=== PATIENT | female | born 1935 | race Caucasian/White ===

== ENCOUNTER 2024-09-09 15:29 | Emergency (ER) | payer MEDICARE, MEDICAID ==
[~2024-09-09] VITALS: Ht 172.7 cm; Wt 71.1 kg
[~2024-09-09 15:29] MED LIST: CARV-50 PO; HYDR-3965 PO; LEVO88TA2 PO; LORA0.5T PO; OMEP20CA4 PO; PAT0.1OS LEFTEYE; VALS1TAB7 PO
--- NOTE | 2024-09-09 15:48 | ELECTROCARDIOGRAPH REPORT ---
[facility] Test Date: 2024-09-09 Test Time: 15:46:03 Pat Name: KATIE GLORIA Department: [facility] Patient ID: [facility]-[id number] Room: Gender: F Allergy Specialist: : [id number] Requested By: WILLIE KINNEY Order Number: [id number] Reading MD: Dr. Alexi Schneider Measurements Intervals [place] Rate: 67 P: 13 MT: 131 QRS: -25 QRSD: 105 T: 51 QT: 431 QTc: 455 Interpretive Statements Sinus rhythm Probable left atrial enlargement Left ventricular hypertrophy Electronically Signed On 09-11-2024 19:15:[address] Alexi Schneider Please click the below link to view image of tracing.
[2024-09-09] MEDS: hydrALAZINE 20mg/ml inj. IV ONE (16:38)
--- NOTE | 2024-09-09 17:07 | RADIOLOGY REPORT ---
CHEST RADIOGRAPH Indication: CP Technique: Single frontal view of the chest was obtained Comparison: None FINDINGS: Lines and Tubes: None Lungs: Right basilar Convex superior opacity with small superior margins which may be from eventratio n of the hemidiaphragm. Surgical clips are noted overlying the right lung base. Subtle interstitial o pacities of the right mid and lower lung zone. Pleura: No effusion. No pneumothorax. Cardiomediastinal contours: Mild cardiomegaly with mild atherosclerotic calcification uncoiling of th e aorta. Retrocardiac double density which may represent hernia with aneurysm not excluded. Bones: No acute osseous abnormality. Additional surgical clips are noted over the right axilla. IMPRESSION: Subtle interstitial opacities of the right mid and lower lung zone which may represent atelectasis/ p neumonia. Retrocardiac double density which may represent small to moderate size hiatal hernia. Aortic aneurys m can not be excluded. No prior Imaging for comparison. CT is recommended for further evaluation.
[2024-09-09 17:11] LABS: MEAN PLATELET VOLUME 7.2 FL (7.4-10.4); RED CELL DISTRIBUTION WIDTH 13.4 % (11.5-14.5)
[2024-09-09 17:30] LABS: LEUKOCYTE ESTERASE ,URINE MODERATE (Neg); NITRITES, URINE NEGATIVE (Neg); OCCULT BLOOD,URINE SMALL (Neg)
[2024-09-09 17:32] LABS: UA COLLECTION TYPE CLN CATCH MIDSTREAM
[2024-09-09 17:33] LABS: CREATININE 0.96 MG/DL (0.40-0.90); PRO BRAIN NATRIURETIC PEPTIDE 8341 PG/ML (0-450); TOTAL CARBON DIOXIDE 30.4 MMOL/L (24-32); eCRCL 42 ML/MIN; eGFR 55 ML/MIN
[2024-09-09 17:36] LABS: SQUAMOUS EPITHELIAL CELL,UR FEW /LPF (FEW)
--- NOTE | 2024-09-09 17:58 | Physician Documentation ---
History of Present Illness ~ Chief Complaint: Hypertension Stated Complaint: HYPERTENSION Time Seen by MD: 16:07 Primary Medical Doctor: Miguelina Mode of Arrival: Wheelchair HPI 89-year-old female presents to the ED via her primary care physician for an elevated blood pressure over 200 systolic. The patient states she has has no medical complaints including chest pain shortness of breath headaches changes in vision or any altered cognitive status. States she does not have any medical complaints at all. Denies any urinary frequency Day of Onset: Sep 09, 2024 Medication Reconciliation Allergies: Coded Allergies: Penicillins (Verified Allergy, Unknown, 09/09/24) Sulfa (Sulfonamide Antibiotics) (Verified Allergy, Unknown, 09/09/24) naproxen (Verified Allergy, Unknown, 09/09/24) Scheduled Carvedilol* (Coreg*), 1 TABLET PO QAM, (Reported) Carvedilol* (Coreg*), 2 TABLET PO QPM, (Reported) Ciprofloxacin HCl (Ciprofloxacin HCl), 1 TAB PO Q12H Levothyroxine Sodium (Synthroid), 1 TABLET PO DAILY, (Reported) Lorazepam* (Ativan*), 1 TABLET PO HS, (Reported) Olopatadine Hcl (PATANOL ophth drops), 1 DRP LEFTEYE DAILY, (Reported) Omeprazole (Prilosec), 1 CAP PO DAILY, (Reported) Valsartan/Hydrochlorothiazide (Diovan Hct 320-12.5 mg Tab), 1 TABLET PO DAILY, (Reported) Scheduled PRN Hydrocodone Bit/Acetaminophen 5/325 MG ([place] 5/325 MG), 1 TAB PO Q6H PRN for pain, (Reported) Review of Systems All Other Systems at this time: Reviewed and Negative ROS As stated above in the HPI, otherwise all systems are reviewed and negative. Physical Exam Vital Signs: Temperature: 98.3, Source: Temporal, Heart Rate: 75, Respiratory Rate: 14, BP: 169/110, Pulse Oximetry: 96, Weight: 71.090 Oxygen Flow Rate: 0 Physical Exam General: Alert, no apparent distress. Respiratory: Lungs clear, no respiratory distress. Chest: No accessory muscle use. Extremities: Normal range of motion, no deformity. Neurologic: Oriented x4. Progress Results/Orders Results/Orders Orders - RALPH COLIN OIL WINTERIZER Chest,Single View (09/09/24 16:08) Monitor (09/09/24 16:08) Saline Lock (09/09/24 16:08) Oxygen (09/09/24 16:08) Electrocardiogram (09/09/24 16:08) Hs Troponin I W Calculations (09/09/24 18:08) Recheck Vital Signs (09/09/24 17:21) Completed Orders - RALPH COLIN [employer] WINTER[employer]ER Hydralazine Inj. (Apresoline Inj.) (09/09/24 16:10) Chest,Single View (09/09/24 16:08) Cbc/Diff (09/09/24 16:08) BMP (09/09/24 16:08) PBNP (09/09/24 16:08) Hs Troponin I W Calculations (09/09/24 16:08) Ua With Microscopic (09/09/24 16:34) Medications Received in ER Medications (Trade) Dose Ordered Sig/Garrett Route PRN Reason Start Time Stop Time Status Last Admin Dose Admin (Apresoline inj.) 10 mg ONCE ONCE IV 09/09/24 16:10 09/09/24 16:11 DC 09/09/24 16:38 10 MG Vital Signs 09/09/24 09/09/24 09/09/24 09/09/24 15:32 15:59 16:38 16:50 Temp 98.3 98.3 Pulse 73 68 75 Resp 18 12 14 B/P (MAP) 194/124 169/110 (129) Pulse Ox 96 96 O2 Flow Rate 0 0 09/09/24 09/09/24 17:52 18:22 Temp 98.3 98.3 Pulse 110 86 Resp 16 16 B/P (MAP) 164/100 (121) 167/108 Pulse Ox 98 97 O2 Flow Rate 0 Laboratory Tests Test 09/09/24 16:34 09/09/24 16:54 Urine Specimen Description Cln catch midstream Urine Color Yellow Urine Clarity Cloudy Urine pH 6.0 Urine Specific [place] 1.025 Urine Protein 100 H Urine Glucose (UA) Negative Urine Ketones Negative Urine Occult Blood Small Urine Nitrite Negative Urine Bilirubin Negative Urine Urobilinogen 0.2 Urine Leukocyte Esterase Moderate H Urine RBC 10-20 Urine WBC Tntc H Urine Squamous Epithelial Cells Few Urine Bacteria 2+ Volume Urine Centrifuged 10 ml Urine Comment White Blood Count 9.3 Red Blood Count 4.21 Hemoglobin 13.2 Hematocrit 39.0 Mean Corpuscular Volume 92.7 Mean Corpuscular Hemoglobin 31.3 H Mean Corpuscular Hemoglobin Concent 33.8 Red Cell Distribution Width 13.4 Platelet Count 229 Mean Platelet Volume 7.2 L Neutrophils (%) (Auto) 48.4 Lymphocytes (%) (Auto) 40.8 Monocytes (%) (Auto) 7.2 Eosinophils (%) (Auto) 2.7 Basophils (%) (Auto) 0.9 Neutrophils # (Auto) 4.5 Lymphocytes # (Auto) 3.8 Monocytes # (Auto) 0.7 Eosinophils # (Auto) 0.3 Basophils # (Auto) 0.1 CBC Comment Sodium Level 140 Potassium Level 3.9 Chloride Level 104 Carbon Dioxide Level 30.4 Anion Gap 6 L Blood Urea Nitrogen 31 H Creatinine 0.96 H Estimated GFR/1.73 m2 55 BUN/Creatinine Ratio 32.3 H Glucose Level 90 Calcium Level 9.1 Troponin I High Sensitivity 15 Pro-B-Type Natriuretic Peptide 8341 H Albumin 3.4 Chemistry Comments Medical Decision Making Findings Patient's laboratory values essentially rule out any sign of cardiac event as her EKG was equally reassuring. Treated her blood pressure with hydralazine. Her urinalysis came back with a notably positive UTI. At this point we have essentially ruled out cardiac events however I am going to treat the patient for her UTI and advised her to follow up in the outpatient setting I did offer hospital admission to the patient but she declined Differential Dx:Considerations: Include CHF, Include HTN, essential, Include HTN, accelerated, Include HTN, malignant, Include HTN, encephalopathy, Include medical noncompliance, Include medication withdrawal, Include pulmonary edema, Include renal failure, Include -induced, Include other Departure Disposition: 01 HOME / SELF CARE / HOMELESS Impression: Primary Impression: Benign hypertension Additional Impression: UTI (urinary tract infection) Discharge Instructions: Hypertension, Adult, [id number], Urinary Tract Infection, Adult Referrals: NO PRIMARY CARE PROVIDER (PCP) Prescriptions Ciprofloxacin HCl (Ciprofloxacin HCl) 500 Mg Tab 1 TAB PO Q12H for 10 Days, #20 TAB Prov: RALPH COLIN OIL WINTERIZER 09/09/24 Education Educated: Patient Educated regarding: diagnosis Signature Scribe Signature: f Attestation: Scribed for Ralph Colin Plater Supervisor by Ralph Owens NP . 09/09/24 17:59 RALPH COLIN NP Sep 09, 2024 17:58
[2024-09-09] MEDS ORDERED: CIPR-202 PO (17:59)
[2024-09-09 18:22] VITALS: BP 167/108; PULSE 86; RESP 16; TEMP 98.3; O2SAT 97
== END 2024-09-09 18:25 | disposition home or self-care (01) ==
LOC: ER 15:30
DX: I10 Essential (primary) hypertension (principal); N39.0 Urinary tract infection, site not specified; Z88.2 Allergy status to sulfonamides; Z88.0 Allergy status to penicillin; Z79.899 Other long term (current) drug therapy
CPT/HCPCS: 36415; 71045; 80048; 81001; 83880; 84484; 85025; 93005; 96374; 99285; J0360